=== PATIENT | female | born 1945 ===

== ENCOUNTER → 2018-09-08 | Outpatient (CLI) | payer MEDICARE, OTHER ==
[~2018-09-08] VITALS: Ht 149.9 cm; Wt 60.0 kg
[~2018-09-08] MED LIST: ADV100 IH; LEVO50 PO; LOSA50TA64 PO; MONT10TA21 PO
[2018-09-08 09:44] VITALS: BP 144/87
== END | disposition home or self-care (01) ==
LOC: SRCNTR 09:42
PROVIDERS: ATTEND Internal Medicine
DX: J44.9 Chronic obstructive pulmonary disease, unspecified (principal); I10 Essential (primary) hypertension; E03.9 Hypothyroidism, unspecified
CPT/HCPCS: G0463